=== PATIENT | female | born 1960 | race American Indian/Alaskan Native ===

== ENCOUNTER 2020-06-13 01:16 | Emergency (ER) | payer OTHER ==
--- NOTE | 2020-06-13 02:24 | EDM.PDOC ---
ED HPI GENERAL MEDICAL PROBLEM - General Chief Complaint: Upper Extremity Injury/Pain Stated Complaint: finger Time Seen by Provider: 06/13/20 01:35 Source of Information: Reports: Patient History Limitations: Reports: No Limitations - History of Present Illness INITIAL COMMENTS - FREE TEXT/NARRATIVE: Patient presented to the ED because of a left 4th finger injury which occurred at work at about 2120. Her left 4th finger got caught in between 2 pieces of metal which she tried to assemble. She is able to extended the injured finger w/o any difficulty but with pain. L 4th digit Pain Score (Numeric/FACES): 8 - Related Data Allergies Allergy/AdvReac Type Severity Reaction Status Date / Time lisinopril Allergy Cough Verified 06/13/20 01:25 metformin Allergy Hives Verified 06/13/20 01:25 Home Meds: Home Meds Cholecalciferol (Vitamin D3) [Vitamin D] 1,250 mcg PO DAILY 06/13/20 [History] Gabapentin [Neurontin] 600 mg PO 14 06/13/20 [History] Losartan [Cozaar] 25 mg PO DAILY 06/13/20 [History] Montelukast [Singulair] 10 mg PO DAILY 06/13/20 [History] Past Medical History Cardiovascular History: Reports: Hypertension Other [employer] CEMENTING History: G0 Musculoskeletal History: Reports: Arthritis, Fracture Other Musculoskeletal History: L ankle fx Neurological History: Reports: Neuropathy, Peripheral Psychiatric History: Reports: Addiction, Psych Hospitalization(s), Suicide Attempt Other Psychiatric History: hx meth abuse, has been clean since 2005 - Infectious Disease History Infectious Disease History: Reports: Chicken Pox - Past Surgical History GI Surgical History: Reports: Appendectomy, Colonoscopy, EGD Musculoskeletal Surgical History: Reports: Carpal Tunnel, ORIF Other Musculoskeletal Surgeries/Procedures:: bilateral carpal tunnel surgery, L ankle repair Social & Family History - Family History Family Medical History: Noncontributory - Tobacco Use Smoking Status *Q: Current Every Day Smoker Years of Tobacco use: 35 Packs/Tins Daily: 0.1 - Caffeine Use Caffeine Use: Reports: Coffee - Recreational Drug Use Recreational Drug Use: No Other Recreational Drug Type: past addict to meth, clean since 2005 Review of Systems - Review of Systems Review Of Systems: See Below Constitutional: Reports: No Symptoms Ears: Reports: No Symptoms Nose: Reports: No Symptoms Mouth/Throat: Reports: No Symptoms Respiratory: Reports: No Symptoms Cardiovascular: Reports: No Symptoms GI/Abdominal: Reports: No Symptoms Genitourinary: Reports: No Symptoms Musculoskeletal: Reports: No Symptoms Skin: Reports: No Symptoms Neurological: Reports: No Symptoms Psychiatric: Reports: No Symptoms ED EXAM, GENERAL - Physical Exam Exam: See Below Exam Limited By: No Limitations General Appearance: Alert, No Apparent Distress Eye Exam: Bilateral Eye: PERRL Ears: Normal External Exam, Normal Canal Nose: Normal Inspection, Normal Mucosa Throat/Mouth: Normal Inspection, Normal Lips, Normal Teeth, Normal Gums Head: Atraumatic, Normocephalic Neck: Normal Inspection, Supple, Non-Tender, Full Range of Motion Respiratory/Chest: No Respiratory Distress, Lungs Clear, Normal Breath Sounds Cardiovascular: Normal Peripheral Pulses, Regular Rate, Rhythm, No Edema, No Gallop GI/Abdominal: Normal Bowel Sounds, Soft, Non-Tender, No Organomegaly Back Exam: Normal Inspection, Full Range of Motion Extremities: Normal Inspection, Normal Range of Motion, Non-Tender Neurological: Alert, Oriented, CN II-XII Intact, Normal Cognition, Normal Gait Psychiatric: Normal Affect, Normal Mood Skin Exam: Warm, Other (ecchymosis left 4th finger tip) Course - Vital Signs Text/Narrative:: Xray left 4th finger-see result Doesn't want to splint, she said she did try to apply one at work and it hurts more Ibuprofen 800 mg with tylenol 1000 mg po x1 Last Recorded V/S: Last Vital Signs Temp 36.7 C 06/13/20 01:20 Pulse 80 06/13/20 02:54 Resp 18 06/13/20 02:54 BP 132/82 06/13/20 02:54 Pulse Ox 100 06/13/20 02:54 - Orders/Labs/Meds Orders: Active Orders 24 hr Category Date Time Status Fingers Fourth Digit Lt F3 [CR] Stat Exams 06/13/20 01:44 Taken Meds: Medications Discontinued Medications Generic Name Dose Route Start Last Admin Trade Name Ck PRN Reason Stop Dose Admin Acetaminophen 1,000 mg 06/13/20 02:35 06/13/20 02:52 Tylenol Extra Strength PO 06/13/20 02:36 1,000 mg ONETIME ONE Administration Ibuprofen 800 mg 06/13/20 02:35 06/13/20 02:51 Motrin PO 06/13/20 02:36 800 mg ONETIME ONE Administration Departure - Departure Time of Disposition: 02:30 Disposition: Home, Self-Care 01 Condition: Good Clinical Impression: Closed fracture of tuft of distal phalanx of finger - Discharge Information Instructions: Finger Fracture, Adult, [id number] Referrals: PCP,None [Primary Care Provider] - Forms: ED Department Discharge, ED Return to Work/School Form Additional Instructions: Please read discharge instructions on finger tuft fracture You may take ibuprofen 800 mg with tylenol 1000 mg every 8 hours as needed for pain Follow up as needed Sepsis Event Note (ED) - Evaluation Sepsis Screening Result: No Definite Risk - Focused Exam Vital Signs: Vital Signs Temp Pulse Resp BP Pulse Ox 06/13/20 02:54 80 18 132/82 100 06/13/20 01:20 36.7 C 89 18 138/85 100 - My Orders Last 24 Hours: My Active Orders 06/13/20 01:44 Fingers Fourth Digit Lt F3 [CR] Stat - Assessment/Plan Last 24 Hours: My Active Orders 06/13/20 01:44 Fingers Fourth Digit Lt F3 [CR] Stat
[2020-06-13] MEDS ORDERED: Ibuprofen 800 MG Tab PO ONE (02:35)
[2020-06-13] MEDS ORDERED: Acetaminophen 500 MG Tab PO ONE (02:35)
--- NOTE | 2020-06-13 10:25 | CR ---
INDICATION: Finger crushed between pieces of steel, pain and swelling. LEFT 4TH FINGER: Three views of the left 4th finger revealed a slightly comminuted oblique fracture through the lateral aspect of the ungual tuft of the 4th left finger. Position and alignment is adequate. Soft tissue swelling is noted at the distal phalanx of the 4th digit. No other acute bone or joint abnormality was identified. Overall bone density appeared to be normal. No significant degenerative changes were noted. IMPRESSION: Comminuted fracture ungual tuft left 4th finger in adequate position and alignment. MTDD
== END 2020-06-13 02:55 | disposition home or self-care (01) ==
LOC: FB.ED 01:16
DX: S62.635A Displaced fracture of distal phalanx of left ring finger, initial encounter for closed fracture (principal); I10 Essential (primary) hypertension; F17.210 Nicotine dependence, cigarettes, uncomplicated; Z90.49 Acquired absence of other specified parts of digestive tract; Z88.8 Allergy status to other drugs, medicaments and biological substances; Z79.899 Other long term (current) drug therapy; W23.0XXA Caught, crushed, jammed, or pinched between moving objects, initial encounter; Y92.89 Other specified places as the place of occurrence of the external cause; Y99.0 Civilian activity done for income or pay
CPT/HCPCS: 73140; 99283; A9270

== ENCOUNTER 2023-04-28 09:20 | Day surgery (SDC) | payer BC, OTHER ==
[~2023-04-28 09:20] MED LIST: Lactated Ringers 1,000 ML IV SCH; Sodium Chloride 0.9% 10 ML Syringe FLUSH PRN
[2023-04-28] MEDS ORDERED: Midazolam 1 MG/ML 2 ML SDV IV ONE (09:21)
[2023-04-28] MEDS ORDERED: Propofol 200 MG/20 ML SDV IV ONE (09:21)
[2023-04-28] MEDS ORDERED: Lidocaine 2% 5 ML SDV IV ONE (09:21)
[2023-04-28] MEDS ORDERED: Simethicone Drops 40 MG/0.6 ML 30 ML Bottle PO ONE (10:53)
== END 2023-04-28 12:15 | disposition home or self-care (01) ==
LOC: FB.SDS 09:20
PROVIDERS: ATTEND Surgery
DX: Z12.11 Encounter for screening for malignant neoplasm of colon (principal); K57.30 Diverticulosis of large intestine without perforation or abscess without bleeding; E03.9 Hypothyroidism, unspecified; M19.90 Unspecified osteoarthritis, unspecified site; F32.A Depression, unspecified; G62.9 Polyneuropathy, unspecified; Z88.8 Allergy status to other drugs, medicaments and biological substances; Z98.890 Other specified postprocedural states; Z87.891 Personal history of nicotine dependence; Z79.1 Long term (current) use of non-steroidal anti-inflammatories (NSAID); Z79.899 Other long term (current) drug therapy
CPT/HCPCS: 00812; A9270-GY; J2250; J2704; J7120

== ENCOUNTER 2024-08-07 23:00 | Emergency (ER) | payer SELFPAY ==
[2024-08-07] MEDS: Bacitracin Oint 1 GM U/D Packet TOP ONE (23:42)
[2024-08-07] MEDS: Diphtheria,Pertussis(Acell),Tetanus Vaccine 0.5 ML Syringe IM ONE (23:43)
== END 2024-08-07 23:51 | disposition home or self-care (01) ==
LOC: FB.ED 23:00
DX: S61.032A Puncture wound without foreign body of left thumb without damage to nail, initial encounter (principal); Z23 Encounter for immunization; I10 Essential (primary) hypertension; Z88.8 Allergy status to other drugs, medicaments and biological substances; Z79.899 Other long term (current) drug therapy; Z90.49 Acquired absence of other specified parts of digestive tract; W26.0XXA Contact with knife, initial encounter
CPT/HCPCS: 90471; 90715; 99283; 99283-25

== ENCOUNTER 2025-04-25 18:33 | Emergency (ER) | payer SELFPAY ==
[2025-04-25] MEDS: Ketorolac 30 MG/ML SDV IM ONE (20:11)
== END 2025-04-25 20:30 | disposition home or self-care (01) ==
LOC: FB.ED 18:33
DX: S93.402A Sprain of unspecified ligament of left ankle, initial encounter (principal); I10 Essential (primary) hypertension; M19.90 Unspecified osteoarthritis, unspecified site; Z79.899 Other long term (current) drug therapy; Z88.8 Allergy status to other drugs, medicaments and biological substances; W20.8XXA Other cause of strike by thrown, projected or falling object, initial encounter
CPT/HCPCS: 73610; 96372; 99283; J1885